=== PATIENT | female | born 1965 | race Hispanic/Latino ===

== ENCOUNTER → 2020-10-20 | Outpatient (CLI) | payer OTHER ==
[~2020-10-20] MED LIST: LOVA20TA3 PO
== END | disposition home or self-care (01) ==
LOC: OIH 08:11
PROVIDERS: ATTEND Internal Medicine
DX: M19.041 Primary osteoarthritis, right hand (principal); M19.042 Primary osteoarthritis, left hand

== ENCOUNTER 2021-02-24 08:08 | Observation (INO) | payer OTHER ==
[2021-02-18 12:35] LABS: BASOPHILS % (AUTO) 0.4 % (0.0-5.0); EOSINOPHILS % (AUTO) 0.6 % (0.0-8.0); HEMATOCRIT 36.5 % (36-48); MEAN CORPUSCULAR HGB CONC 32.6 g/dL (32.0-36.0); MEAN CORPUSCULAR VOLUME 95.1 fL (79-99); MONOCYTES % (AUTO) 7.6 % (3.0-13.0); NEUTROPHILS % (AUTO) 51.2 % (40.0-77.0); PLATELET COUNT (AUTO) 211 K/uL (130-400); RED BLOOD CELL COUNT(AUTO) 3.84 MIL/uL (4.00-5.50); RED CELL DISTRIBUTION WIDTH 12.4 % (11.0-15.5); WHITE BLOOD COUNT (AUTO) 5.1 K/uL (4.8-10.8)
[2021-02-18 12:49] LABS: CREATININE 0.7 mg/dL (0.5-1.5); POTASSIUM 4.3 mmol/L (3.5-5.1)
[2021-02-18 13:02] LABS: INR 1.02 (0.85-1.15); PROTHROMBIN TIME 11.1 SEC (9.6-11.6)
[2021-02-18 13:03] LABS: PARTIAL THROMBOPLASTIN TIME 24.4 SEC (26.3-35.5)
[2021-02-23 12:22] VITALS: BP 145/62
[~2021-02-24] VITALS: Ht 152.4 cm; Wt 59.1 kg
[2021-02-24] VITALS (22 sets, daily range): BP systolic 102–132; BP diastolic 50–75
[~2021-02-24 08:08] MED LIST changes: +ATOR40TA71 PO; +ERGO500093 PO; +LACTATED RINGERS 1000ML 1,000 ML IV SCH; -LOVA20TA3 PO; +ROPIVICAINE 250MG+KETOROLAC 15MG+EPINEPHRINE 0.3+CLONIDINE 80 IV PRN; +SULF500T8 PO
[2021-02-24] MEDS: CEFAZOLIN SODIUM 1 GM VIAL IVP SCH ×3 (08:30→20:39)
[2021-02-24] MEDS ORDERED: TRANEXAMIC ACID 1000MG/10ML ONE (12:57)
[2021-02-24] MEDS ORDERED: LIDOCAINE PF 100MG/5ML (2%) SYRINGE 5ML ONE (13:14)
[2021-02-24] MEDS ORDERED: SUCCINYLCHOLINE CHLORIDE 20 MG/ML 10 ML VIAL ONE (13:14)
[2021-02-24] MEDS ORDERED: MIDAZOLAM HCL 1 MG/ML 2ML VIAL ONE (13:15)
[2021-02-24] MEDS ORDERED: ROCURONIUM 10MG/1ML SYR 10 MG/ML ML ONE (13:15)
[2021-02-24] MEDS ORDERED: NEOSTIGMINE 5MG/5ML SYR IV ONE ×2 (13:15→15:22)
[2021-02-24] MEDS ORDERED: ONDANSETRON 4MG INJ ONE (13:15)
[2021-02-24] MEDS ORDERED: PROPOFOL 10 MG/ML 20ML VIAL IV ONE (13:15)
[2021-02-24] MEDS ORDERED: GLYCOPYRROLATE 1 MG/5 ML SYRINGE ONE ×2 (13:15→15:22)
[2021-02-24] MEDS ORDERED: DEXAMETHASONE SOD PHOSPHATE 10MG/ML 1ML VIAL ONE (13:15)
[2021-02-24] MEDS ORDERED: FENTANYL CITRATE PF 50 MCG/1 ML 2ML VIAL ONE (13:16)
[2021-02-24] MEDS ORDERED: MEPERIDINE-PF 25 MG/ML SYG ONE ×3 (13:18→16:12)
[2021-02-24] MEDS ORDERED: ROPIVACAINE 0.5% 5MG/ML 30ML IJ ONE (13:23)
[2021-02-24] MEDS ORDERED: EPHEDRINE SULFATE 50 MG/ML AMPULE ONE (13:44)
[2021-02-24] MEDS: ACETAMINOPHEN 500 MG TABLET PO SCH (16:00)
[2021-02-24] MEDS ORDERED: HYDROCODONE/ACETAMINOPHEN 5/325 MG TAB PO PRN (16:00)
[2021-02-24] MEDS: 0.9%NACL 1000ML 1,000 ML IV SCH (16:55)
[2021-02-24] MEDS: TRAMADOL HCL 50 MG TABLET PO SCH ×2 (17:28→18:01)
[2021-02-24] MEDS: MORPHINE 4 MG SYG IVP PRN (17:57)
[2021-02-24] MEDS: CELECOXIB 200 MG CAP PO SCH (20:39)
[2021-02-24] MEDS: ASPIRIN 81 MG EC TAB PO SCH (20:39)
[2021-02-24] MEDS: FAMOTIDINE 20MG TAB PO SCH (20:39)
[2021-02-24] MEDS: SULFASALAZINE 500 MG TAB.DR PO SCH (20:41)
[2021-02-25] MEDS: TRAMADOL HCL 50 MG TABLET PO SCH ×4 (00:05→17:42)
[2021-02-25] MEDS: ACETAMINOPHEN 500 MG TABLET PO SCH ×3 (00:06→16:00)
[2021-02-25] MEDS: 0.9%NACL 1000ML 1,000 ML IV SCH ×2 (02:00→11:35)
[2021-02-25] MEDS: ONDANSETRON 4MG INJ IVP PRN ×2 (03:37→13:24)
[2021-02-25] MEDS: MORPHINE 4 MG SYG IVP PRN ×2 (03:44→20:31)
[2021-02-25 03:45] VITALS: BP 124/50
[2021-02-25 04:05] LABS: HEMATOCRIT 29.5 % (36-48); MEAN CORPUSCULAR HEMOGLOBIN 30.4 pg (27.0-33.0); MEAN CORPUSCULAR HGB CONC 32.2 g/dL (32.0-36.0); MEAN CORPUSCULAR VOLUME 94.6 fL (79-99); RED BLOOD CELL COUNT(AUTO) 3.12 MIL/uL (4.00-5.50); RED CELL DISTRIBUTION WIDTH 12.5 % (11.0-15.5); WHITE BLOOD COUNT (AUTO) 9.2 K/uL (4.8-10.8)
[2021-02-25 04:26] LABS: CREATININE 0.7 mg/dL (0.5-1.5); POTASSIUM 4.8 mmol/L (3.5-5.1)
[2021-02-25] MEDS: CEFAZOLIN SODIUM 1 GM VIAL IVP SCH (05:07)
[2021-02-25 08:00] VITALS: BP 104/59
[2021-02-25] MEDS: ASPIRIN 81 MG EC TAB PO SCH ×2 (08:34→20:31)
[2021-02-25] MEDS: CELECOXIB 200 MG CAP PO SCH ×2 (08:34→20:31)
[2021-02-25] MEDS: POLYETHYLENE GLYCOL 3350 17 GM POWD.PACK PO SCH (08:34)
[2021-02-25] MEDS: FAMOTIDINE 20MG TAB PO SCH ×2 (08:34→20:31)
[2021-02-25] MEDS: OXYCODONE HCL 5 MG TAB PO PRN (08:41)
[2021-02-25] MEDS: SULFASALAZINE 500 MG TAB.DR PO SCH ×2 (08:41→20:31)
[2021-02-25 11:47] VITALS: BP 94/48
[2021-02-25 16:00] VITALS: BP 111/54
[2021-02-25 19:51] VITALS: BP 109/67
[2021-02-26 00:04] VITALS: BP 100/58
[2021-02-26] MEDS: ACETAMINOPHEN 500 MG TABLET PO SCH ×3 (00:04→15:26)
[2021-02-26] MEDS: TRAMADOL HCL 50 MG TABLET PO SCH ×3 (00:04→11:46)
[2021-02-26 04:23] VITALS: BP 108/57
[2021-02-26] MEDS: MORPHINE 4 MG SYG IVP PRN (04:44)
[2021-02-26 08:00] VITALS: BP 115/61
[2021-02-26] MEDS: POLYETHYLENE GLYCOL 3350 17 GM POWD.PACK PO SCH (08:00)
[2021-02-26] MEDS: ASPIRIN 81 MG EC TAB PO SCH (08:00)
[2021-02-26] MEDS: CELECOXIB 200 MG CAP PO SCH (08:01)
[2021-02-26] MEDS: FAMOTIDINE 20MG TAB PO SCH (08:02)
[2021-02-26] MEDS: ONDANSETRON 4MG INJ IVP PRN (08:02)
[2021-02-26] MEDS: SULFASALAZINE 500 MG TAB.DR PO SCH (09:05)
[2021-02-26 12:03] VITALS: BP 118/64
[2021-02-26] MEDS: OXYCODONE HCL 5 MG TAB PO PRN (14:16)
[2021-02-27] MEDS ORDERED: BISACODYL 10 MG SUPP.RECT RC PRN (16:00)
== END 2021-02-26 16:30 | disposition home or self-care (01) ==
LOC: DAH 08:08 → DAHIP 08:09 → 4AH 17:47
PROVIDERS: ADMIT Orthopaedic Surgery; ATTEND Orthopaedic Surgery
DX: M17.0 Bilateral primary osteoarthritis of knee (principal); Z20.822 Contact with and (suspected) exposure to COVID-19; M21.062 Valgus deformity, not elsewhere classified, left knee; E78.00 Pure hypercholesterolemia, unspecified; Z79.82 Long term (current) use of aspirin
CPT/HCPCS: 27447; 36415 ×2; 73560; 80048 ×2; 85025; 85027; 85610; 85730; 87635; 96361 ×2; 96374; 96375 ×2; 96376 ×2; 97039 ×4; 97116 ×3; 97161; 97530 ×3; A4213; A4215; A4216; A4221; A4222; A4223 ×2; A4248; A4600; A4649 ×6; A4663; A4930 ×2; A5120; A6212; A6260; A9272; C1776; C9803; G0378 ×46; G8978; G8979; G8980; G8981; G8982; G8983; J0171; J0330; J0690 ×3; J0735; J1100; J1885; J2001; J2175 ×3; J2250; J2270 ×4; J2405 ×4; J2704; J2710 ×2; J2795 ×2; J3010; J3490 ×4; J7030; J7120 ×2

== ENCOUNTER → 2023-01-19 | Outpatient (CLI) | payer BC ==
[~2023-01-19] MED LIST changes: -LACTATED RINGERS 1000ML 1,000 ML IV SCH; -ROPIVICAINE 250MG+KETOROLAC 15MG+EPINEPHRINE 0.3+CLONIDINE 80 IV PRN
[2023-01-19 10:43] LABS: HEMOGLOBIN A1C 5.5 % (4.0-6.0)
== END | disposition home or self-care (01) ==
LOC: LAB 08:18
PROVIDERS: ATTEND Student in an Organized Health Care Education/Training Program
DX: E78.5 Hyperlipidemia, unspecified (principal)
CPT/HCPCS: 83036